=== PATIENT | male | born 1970 | race Caucasian/White ===

== ENCOUNTER 2020-11-13 04:31 | Inpatient (IN) | payer OTHER ==
[2020-11-13] MEDS ORDERED: LACTATED RINGERS SOLUTION 1000 ML INFUS.BAG IV ONE ×3 (05:05→10:33)
[2020-11-13] MEDS ORDERED: ACETAMINOPHEN 1000 MG/100 ML VIAL (NON FORMULARY) IVPB ONE ×2 (05:05→09:39)
[2020-11-13] MEDS ORDERED: ACETAMINOPHEN INJECTION 100 ML IVPB ONE (05:23)
[2020-11-13 06:40] LABS: BASO % 0.4 % (0-2.0); EOS % 0.1 % (0-4.5); HEMATOCRIT 47.4 % (35.4-49); HEMOGLOBIN 16.2 GM/dL (11.7-16.9); LYMPH % 9.8 % (8-40); MCH 31.9 pg (25.7-33.7); MCHC 34.1 g/dl (32.0-35.9); MEAN CELL VOLUME 93.6 fl (80-96); MEAN PLT VOLUME 8.5 fl (7.5-11.1); MONO % 0.5 % (3.8-10.2); NEUT % 89.2 % (42.8-82.8); PLATELET COUNT 117 K/MM3 (134-434); RBC 5.06 M/mm3 (4.00-5.60); RDW 13.8 % (11.9-15.9); WHITE BLOOD COUNT 3.2 K/mm3 (4.0-10.0)
[2020-11-13 06:50] LABS: INR 1.4 (0.83-1.09); PROTHROMBIN TIME (PATIENT) 17.1 SEC (9.7-13.0)
[2020-11-13 06:53] LABS: ACTIVATED PTT 36.6 SECONDS (25.2-36.5)
[2020-11-13 06:57] LABS: CALCIUM 8.8 mg/dL (8.5-10.1)
[2020-11-13 06:58] LABS: ALBUMIN 3.6 g/dl (3.4-5.0); BLOOD UREA NITROGEN 18.8 mg/dL (7-18)
[2020-11-13 07:01] LABS: CREATININE 1.2 mg/dL (0.55-1.3)
[2020-11-13 07:02] LABS: BILIRUBIN,TOTAL 1.4 mg/dL (0.2-1); TOT PROT 6.9 g/dl (6.4-8.2)
[2020-11-13 07:08] LABS: LACTIC ACID 4.2 mmol/L (0.4-2.0)
[2020-11-13 08:55] LABS: PH,URINE 6.5 (5.0-8.0); URINE APPEARANCE CLOUDY; URINE BILIRUBIN 1+ (NEGATIVE); URINE COLOR ORANGE; URINE GLUCOSE (UA) NEGATIVE (NEGATIVE); URINE KETONE NEGATIVE (NEGATIVE); URINE LEUK ESTERASE 1+ (NEGATIVE); URINE NITRITE POSITIVE (NEGATIVE); URINE PROTEIN 4+ (NEGATIVE)
[2020-11-13] MEDS ORDERED: KETOROLAC TROMETHAMINE 15 MG/ML VIAL IVPUSH PRN (09:40)
[2020-11-13] MEDS ORDERED: METOCLOPRAMIDE HCL INJECTION 10 MG/2 ML VIAL IVPB PRN (09:45)
[2020-11-13] MEDS ORDERED: METOCLOPRAMIDE HCL INJECTION 10 MG/2 ML VIAL ONE (09:48)
[2020-11-13 10:27] LABS: LACTIC ACID 4.4 mmol/L (0.4-2.0)
[2020-11-13] MEDS ORDERED: SODIUM CHLORIDE 1,000 ML IV STA ×2 (11:38→18:50)
[2020-11-13 11:52] LABS: ANISOCYTOSIS 1+; MACROCYTOSIS 0; PLATELET ESTIMATE DECREASED
[2020-11-13] MEDS: SODIUM CHLORIDE 1,000 ML IV SCH (13:31)
[2020-11-13] MEDS ORDERED: MEROPENEM 1 GM in DEXTROSE 5%-WATER 100 ML IVPB SCH (14:00)
[2020-11-13 14:28] LABS: LACTIC ACID 6.1 mmol/L (0.4-2.0)
[2020-11-13] MEDS ORDERED: ACETAMINOPHEN 500 MG TABLET (FP) PO ONE (15:46)
[2020-11-13 15:51] LABS: URINE RBC 35-40 /uL (0-23.9)
[2020-11-13 15:52] LABS: EPI CELLS NONE SEEN /uL (0-25.1); HYALINE CASTS NONE SEEN /uL (0-3.1); URINE BACTERIA MODERATE /uL (0-1359)
[2020-11-13] MEDS ORDERED: DEXTROSE 5%-WATER 100 ML IVPB ONE ×2 (16:08→22:52)
[2020-11-13] MEDS ORDERED: MEROPENEM 1 GM VIAL (RESTRICTED TO ID) IVPB ONE ×2 (16:08→22:51)
[2020-11-13 16:29] VITALS: BMI 27.9
[2020-11-13] MEDS ORDERED: PT OWN MED DRAWER 7, Y5N ONE (17:42)
[2020-11-13] MEDS: MEROPENEM 1 GM in DEXTROSE 5%-WATER 100 ML IVPB SCH (17:44)
[2020-11-13] MEDS: VASOPRESSIN 40 UNITS in SODIUM CHLORIDE 98 ML IVPB SCH ×3 (17:46→19:06)
[2020-11-13 18:46] LABS: LACTIC ACID 7.3 mmol/L (0.4-2.0)
[2020-11-13 20:14] LABS: CHLORIDE 109 mmol/L (98-107); SODIUM 141 mmol/L (136-145)
[2020-11-13 20:17] LABS: ANION GAP 12 MMOL/L (8-16); BLOOD UREA NITROGEN 15.4 mg/dL (7-18); CO2 20 mmol/L (21-32); GLUCOSE,RANDOM 83 mg/dL (74-106)
[2020-11-13 20:20] LABS: CREATININE 1.2 mg/dL (0.55-1.3); SGOT/AST 138 U/L (15-37); SGPT/ALT 152 U/L (13-61)
[2020-11-13 20:22] LABS: BILIRUBIN,TOTAL 1.3 mg/dL (0.2-1)
[2020-11-13 20:23] LABS: ALK PHOS 97 U/L (45-117)
[2020-11-13 20:30] LABS: ALBUMIN 2.4 g/dl (3.4-5.0); CALCIUM 6.9 mg/dL (8.5-10.1); TOT PROT 4.8 g/dl (6.4-8.2)
[2020-11-13] MEDS: MUPIROCIN 2% TOPICAL OINTMENT FOR DECOLONIZATION NS SCH (21:12)
[2020-11-13] MEDS: CHLORHEXIDINE GLUCONATE 4% CLEANSER FOR DECOLONIZATION TP SCH (21:12)
[2020-11-13] MEDS ORDERED: ACETAMINOPHEN 1000 MG/100 ML VIAL (NON FORMULARY) IVPB PRN (22:00)
[2020-11-13] MEDS ORDERED: POTASSIUM CHLORIDE ORAL LIQUID 20 MEQ/15 ML PO ONE (22:37)
[2020-11-13] MEDS ORDERED: CALCIUM GLUCONATE 10% - 1,000 MG/10 ML VIAL IVPB ONE (22:39)
[2020-11-13 22:44] LABS: ARTERIAL BLOOD GAS BASE EXCESS -9.3 mmol/L (-2-2); ARTERIAL BLOOD GAS pH 7.347 (7.350-7.450)
[2020-11-13 22:47] LABS: ALLENS TEST POSITIVE; VENT RATE N
[2020-11-14] MEDS: MEROPENEM 1 GM in DEXTROSE 5%-WATER 100 ML IVPB SCH ×3 (01:01→17:05)
[2020-11-14] MEDS ORDERED: NOREPINEPHRINE BITARTRATE 8,000 MCG/500 ML BAG IVPB ONE (01:47)
[2020-11-14] MEDS ORDERED: SODIUM CHLORIDE 500 ML IV STA (02:02)
[2020-11-14 02:43] LABS: BLOOD UREA NITROGEN 16.4 mg/dL (7-18); CALCIUM 7.5 mg/dL (8.5-10.1)
[2020-11-14 02:46] LABS: CREATININE 1.3 mg/dL (0.55-1.3)
[2020-11-14 03:06] LABS: LACTIC ACID 7.2 mmol/L (0.4-2.0)
[2020-11-14] MEDS ORDERED: SODIUM CHLORIDE 1,000 ML IV STA ×2 (04:02→18:18)
[2020-11-14] MEDS ORDERED: LACTATED RINGERS SOLUTION 1000 ML INFUS.BAG IV ONE (04:33)
[2020-11-14] MEDS: LACTATED RINGERS SOLUTION 1,000 ML/1,000 ML INFUS.BAG IV SCH (05:07)
[2020-11-14] MEDS: ALBUTEROL SO4 2.5/IPRATROPIUM 0.5 INH SOL 3 ML VIAL.NEB. NEB PRN ×4 (06:14→23:58)
[2020-11-14 07:28] LABS: HEMATOCRIT 40.3 % (35.4-49); HEMOGLOBIN 13.6 GM/dL (11.7-16.9); MCH 32.3 pg (25.7-33.7); MCHC 33.8 g/dl (32.0-35.9); MEAN CELL VOLUME 95.6 fl (80-96); MEAN PLT VOLUME 8.7 fl (7.5-11.1); PLATELET COUNT 49 K/MM3 (134-434); RBC 4.22 M/mm3 (4.00-5.60); RDW 14.1 % (11.9-15.9); WHITE BLOOD COUNT 12.2 K/mm3 (4.0-10.0)
[2020-11-14 07:52] LABS: CHLORIDE 113 mmol/L (98-107); SODIUM 143 mmol/L (136-145)
[2020-11-14 08:01] LABS: LACTIC ACID 7.2 mmol/L (0.4-2.0)
[2020-11-14] MEDS ORDERED: IBUPROFEN 200 MG TABLET PO ONE (08:15)
[2020-11-14 08:20] LABS: GLUCOSE,RANDOM 79 mg/dL (74-106)
[2020-11-14 08:21] LABS: ALBUMIN 2.5 g/dl (3.4-5.0); ANION GAP 15 MMOL/L (8-16); CO2 15 mmol/L (21-32); MAGNESIUM 1.5 mg/dL (1.8-2.4)
[2020-11-14 08:24] LABS: CREATININE 1.1 mg/dL (0.55-1.3); SGOT/AST 266 U/L (15-37); SGPT/ALT 328 U/L (13-61)
[2020-11-14] MEDS ORDERED: LACTATED RINGERS SOLUTION 1,000 ML/1,000 ML INFUS.BAG IV STA (08:25)
[2020-11-14] MEDS ORDERED: MAGNESIUM SULF 50% (8.12 MEQ/2 ML-1 GM VIAL) IVPB ONE (08:25)
[2020-11-14 08:27] LABS: BILIRUBIN,TOTAL 1.7 mg/dL (0.2-1)
[2020-11-14 08:35] LABS: ALK PHOS 46 U/L (45-117); CALCIUM 6.9 mg/dL (8.5-10.1)
[2020-11-14] MEDS ORDERED: MEROPENEM 1 GM VIAL (RESTRICTED TO ID) IVPB ONE ×2 (08:47→16:50)
[2020-11-14] MEDS ORDERED: PT OWN MED DRAWER 7, Y5N ONE (08:47)
[2020-11-14] MEDS ORDERED: DEXTROSE 5%-WATER 100 ML IVPB ONE ×2 (08:47→16:50)
[2020-11-14] MEDS: MUPIROCIN 2% TOPICAL OINTMENT FOR DECOLONIZATION NS SCH ×2 (09:13→22:44)
[2020-11-14] MEDS ORDERED: ENOXAPARIN NA (PORCINE) 40 MG/0.4 ML DISP.SYRIN SQ SCH (10:00)
[2020-11-14] MEDS: VASOPRESSIN 40 UNITS in SODIUM CHLORIDE 98 ML IVPB SCH ×2 (10:15→19:09)
[2020-11-14 12:47] LABS: EPI CELLS 4 /uL (0-25.1); HYALINE CASTS 5 /uL (0-3.1); PH,URINE 5.5 (5.0-8.0); URINE APPEARANCE TURBID; URINE BILIRUBIN 1+ (NEGATIVE); URINE COLOR ORANGE; URINE GLUCOSE (UA) NEGATIVE (NEGATIVE); URINE KETONE NEGATIVE (NEGATIVE); URINE LEUK ESTERASE 2+ (NEGATIVE); URINE NITRITE POSITIVE (NEGATIVE); URINE PROTEIN 2+ (NEGATIVE); URINE RBC 33243 /uL (0-23.9); URINE UROBILINOGEN 0.2 mg/dL (0.2-1.0); URINE WBC 1971 /uL (0-25.8)
[2020-11-14 13:59] LABS: URINE BACTERIA 5.7 /uL (0-1359)
[2020-11-14] MEDS: SODIUM CHLORIDE 1,000 ML IV SCH (14:10)
[2020-11-14 14:34] LABS: HEMATOCRIT 37.7 % (35.4-49); HEMOGLOBIN 12.7 GM/dL (11.7-16.9); MCH 31.7 pg (25.7-33.7); MCHC 33.7 g/dl (32.0-35.9); MEAN CELL VOLUME 94.2 fl (80-96); MEAN PLT VOLUME 9.2 fl (7.5-11.1); PLATELET COUNT 47 K/MM3 (134-434); RBC 4.01 M/mm3 (4.00-5.60); RDW 14.2 % (11.9-15.9); WHITE BLOOD COUNT 14.5 K/mm3 (4.0-10.0)
[2020-11-14 14:45] LABS: INR 3.47 (0.83-1.09); PROTHROMBIN TIME (PATIENT) 41.2 SEC (9.7-13.0)
[2020-11-14 14:48] LABS: ACTIVATED PTT 36.8 SECONDS (25.2-36.5)
[2020-11-14 15:18] LABS: LACTIC ACID 10.4 mmol/L (0.4-2.0)
[2020-11-14] MEDS ORDERED: MELATONIN 5 MG TABLETS PO ONE (22:23)
[2020-11-14] MEDS: CHLORHEXIDINE GLUCONATE 4% CLEANSER FOR DECOLONIZATION TP SCH (22:44)
[2020-11-15] MEDS ORDERED: MEROPENEM 1 GM VIAL (RESTRICTED TO ID) IVPB ONE ×3 (02:10→16:07)
[2020-11-15] MEDS ORDERED: DEXTROSE 5%-WATER 100 ML IVPB ONE ×3 (02:11→16:07)
[2020-11-15] MEDS: MEROPENEM 1 GM in DEXTROSE 5%-WATER 100 ML IVPB SCH ×3 (02:21→17:19)
[2020-11-15] MEDS ORDERED: ACETAMINOPHEN INJECTION 100 ML IVPB ONE (06:23)
[2020-11-15] MEDS ORDERED: ALBUTEROL SO4 2.5/IPRATROPIUM 0.5 INH SOL 3 ML VIAL.NEB. NEB ONE (06:23)
[2020-11-15] MEDS ORDERED: ALBUTEROL SO4 2.5/IPRATROPIUM 0.5 INH SOL 3 ML VIAL.NEB. NEB SCH (06:30)
[2020-11-15] MEDS: ALBUTEROL SO4 2.5/IPRATROPIUM 0.5 INH SOL 3 ML VIAL.NEB. NEB PRN (06:56)
[2020-11-15 07:25] LABS: BASO % 0.3 % (0-2.0); EOS % 1.2 % (0-4.5); HEMATOCRIT 36.1 % (35.4-49); HEMOGLOBIN 12.4 GM/dL (11.7-16.9); LYMPH % 6.8 % (8-40); MCH 31.8 pg (25.7-33.7); MCHC 34.4 g/dl (32.0-35.9); MEAN CELL VOLUME 92.6 fl (80-96); MEAN PLT VOLUME 9.4 fl (7.5-11.1); MONO % 1.9 % (3.8-10.2); NEUT % 89.8 % (42.8-82.8); PLATELET COUNT 43 K/MM3 (134-434); RDW 13.9 % (11.9-15.9); WHITE BLOOD COUNT 16.2 K/mm3 (4.0-10.0)
[2020-11-15 07:26] LABS: ARTERIAL BLD GAS O2 SATURATION 52.6 mmHg (95-98); ARTERIAL BLOOD GAS BASE EXCESS -5.8 mmol/L (-2-2); ARTERIAL BLOOD GAS pH 7.349 (7.350-7.450)
[2020-11-15 07:30] LABS: ALLENS TEST POSITIVE
[2020-11-15 07:31] LABS: ARTERIAL BLOOD GAS PO2 29.1 mmHg (80-100)
[2020-11-15 07:33] LABS: INR 1.71 (0.83-1.09); PROTHROMBIN TIME (PATIENT) 20.7 SEC (9.7-13.0)
[2020-11-15 07:36] LABS: ACTIVATED PTT 32.3 SECONDS (25.2-36.5)
[2020-11-15 07:40] LABS: CHLORIDE 112 mmol/L (98-107); SODIUM 140 mmol/L (136-145)
[2020-11-15 07:45] LABS: CREATININE 0.7 mg/dL (0.55-1.3); LACTIC ACID 4.4 mmol/L (0.4-2.0)
[2020-11-15 07:47] LABS: BILIRUBIN,TOTAL 0.8 mg/dL (0.2-1); TOT PROT 5.3 g/dl (6.4-8.2)
[2020-11-15 07:48] LABS: ALK PHOS 63 U/L (45-117)
[2020-11-15 07:49] LABS: ALBUMIN 2.5 g/dl (3.4-5.0); BLOOD UREA NITROGEN 21.1 mg/dL (7-18); GLUCOSE,RANDOM 128 mg/dL (74-106)
[2020-11-15 07:51] LABS: CALCIUM 7.7 mg/dL (8.5-10.1)
[2020-11-15 07:52] LABS: ANION GAP 9 MMOL/L (8-16); CO2 19 mmol/L (21-32); MAGNESIUM 2.3 mg/dL (1.8-2.4); SGOT/AST 316 U/L (15-37); SGPT/ALT 500 U/L (13-61)
[2020-11-15 07:58] LABS: PHOSPHOROUS 0.9 mg/dL (2.5-4.9)
[2020-11-15] MEDS: ALBUTEROL SO4 2.5/IPRATROPIUM 0.5 INH SOL 3 ML VIAL.NEB. NEB SCH ×3 (08:00→20:07)
[2020-11-15] MEDS ORDERED: FAMOTIDINE 20 MG/50 ML IVPB 20 MG/50 ML MG IVPB ONE (09:00)
[2020-11-15] MEDS ORDERED: methylPREDNISolone NA SUCC 125 MG/2 ML VIAL IVPUSH ONE (09:00)
[2020-11-15] MEDS ORDERED: PT OWN MED DRAWER 7, Y5N ONE ×2 (09:08→20:56)
[2020-11-15] MEDS: LACTATED RINGERS SOLUTION 1,000 ML/1,000 ML INFUS.BAG IV SCH (09:10)
[2020-11-15] MEDS: MUPIROCIN 2% TOPICAL OINTMENT FOR DECOLONIZATION NS SCH ×2 (09:11→21:03)
[2020-11-15] MEDS: VASOPRESSIN 40 UNITS in SODIUM CHLORIDE 98 ML IVPB SCH (09:11)
[2020-11-15] MEDS: POTASSIUM PHOSPHATE 45 MM in SODIUM CHLORIDE 500 ML IVPB ONE ×2 (09:17→11:14)
[2020-11-15 09:33] LABS: ARTERIAL BLD GAS O2 SATURATION 96.7 mmHg (95-98); ARTERIAL BLOOD GAS BASE EXCESS -5.1 mmol/L (-2-2); ARTERIAL BLOOD GAS PO2 85.7 mmHg (80-100); ARTERIAL BLOOD GAS pH 7.411 (7.350-7.450)
[2020-11-15 09:34] LABS: ALLENS TEST POSITIVE
[2020-11-15 09:43] LABS: VENT MODE S/T; VENT RATE 12
[2020-11-15] MEDS ORDERED: FUROSEMIDE 40 MG/4 ML INJECTABLE VIAL IVPUSH ONE (10:15)
[2020-11-15 11:11] LABS: ANISOCYTOSIS 1+; MACROCYTOSIS 0; OVALOCYTE 1+; PLATELET ESTIMATE DECREASED
[2020-11-15] MEDS ORDERED: POTASSIUM PHOSPHATE 45 MM in SODIUM CHLORIDE 250 ML IVPB ONE (11:13)
[2020-11-15] MEDS: NAPH,MB-DB/K PH,MBDB POWDER PACKET PO SCH ×3 (12:18→21:00)
[2020-11-15] MEDS: CHLORHEXIDINE GLUCONATE 4% CLEANSER FOR DECOLONIZATION TP SCH (21:04)
[2020-11-16] MEDS ORDERED: MEROPENEM 1 GM VIAL (RESTRICTED TO ID) IVPB ONE ×3 (01:06→16:48)
[2020-11-16] MEDS ORDERED: DEXTROSE 5%-WATER 100 ML IVPB ONE ×3 (01:06→16:49)
[2020-11-16] MEDS: MEROPENEM 1 GM in DEXTROSE 5%-WATER 100 ML IVPB SCH ×3 (01:08→17:05)
[2020-11-16 07:12] LABS: BASO % 0.1 % (0-2.0); EOS % 0.1 % (0-4.5); HEMATOCRIT 33.8 % (35.4-49); HEMOGLOBIN 11.8 GM/dL (11.7-16.9); LYMPH % 6.4 % (8-40); MCH 31.4 pg (25.7-33.7); MCHC 34.8 g/dl (32.0-35.9); MEAN CELL VOLUME 90.2 fl (80-96); MEAN PLT VOLUME 9.5 fl (7.5-11.1); NEUT % 90.4 % (42.8-82.8); PLATELET COUNT 55 K/MM3 (134-434); RBC 3.75 M/mm3 (4.00-5.60); WHITE BLOOD COUNT 24.2 K/mm3 (4.0-10.0)
[2020-11-16 07:33] LABS: ALBUMIN 2.4 g/dl (3.4-5.0); BLOOD UREA NITROGEN 20.9 mg/dL (7-18)
[2020-11-16 07:36] LABS: CREATININE 0.7 mg/dL (0.55-1.3); PHOSPHOROUS 1.3 mg/dL (2.5-4.9)
[2020-11-16 07:38] LABS: TOT PROT 5.4 g/dl (6.4-8.2)
[2020-11-16] MEDS: ALBUTEROL SO4 2.5/IPRATROPIUM 0.5 INH SOL 3 ML VIAL.NEB. NEB SCH ×4 (08:40→20:40)
[2020-11-16] MEDS ORDERED: PHYTONADIONE 10 MG/1 ML AMP SQ SCH (10:00)
[2020-11-16 10:24] LABS: ANISOCYTOSIS 0; MACROCYTOSIS 0; PLATELET ESTIMATE DECREASED
[2020-11-16] MEDS: MUPIROCIN 2% TOPICAL OINTMENT FOR DECOLONIZATION NS SCH ×2 (13:51→22:20)
[2020-11-16] MEDS ORDERED: NAPH,MB-DB/K PH,MBDB POWDER PACKET PO SCH (14:00)
[2020-11-16] MEDS ORDERED: METOCLOPRAMIDE HCL INJECTION 10 MG/2 ML VIAL IVPB PRN (15:22)
[2020-11-16] MEDS: CHLORHEXIDINE GLUCONATE 4% CLEANSER FOR DECOLONIZATION TP SCH (22:20)
[2020-11-16] MEDS: NAPH,MB-DB/K PH,MBDB POWDER PACKET PO SCH (22:20)
[2020-11-17] MEDS ORDERED: DEXTROSE 5%-WATER 100 ML IVPB ONE ×3 (02:27→16:33)
[2020-11-17] MEDS ORDERED: MEROPENEM 1 GM VIAL (RESTRICTED TO ID) IVPB ONE ×3 (02:27→16:32)
[2020-11-17] MEDS: MEROPENEM 1 GM in DEXTROSE 5%-WATER 100 ML IVPB SCH ×3 (02:44→17:18)
[2020-11-17] MEDS: SODIUM CHLORIDE NASAL SPRAY 44 ML BOTTLE NS PRN ×2 (03:56→13:22)
[2020-11-17] MEDS: NAPH,MB-DB/K PH,MBDB POWDER PACKET PO SCH ×3 (05:48→21:36)
[2020-11-17] MEDS: ALBUTEROL SO4 2.5/IPRATROPIUM 0.5 INH SOL 3 ML VIAL.NEB. NEB SCH ×4 (07:30→20:30)
[2020-11-17] MEDS ORDERED: SODIUM CHLORIDE 250 ML IV STA (09:32)
[2020-11-17 09:56] LABS: INR 1.2 (0.83-1.09); PROTHROMBIN TIME (PATIENT) 14.5 SEC (9.7-13.0)
[2020-11-17 09:59] LABS: ACTIVATED PTT 25.5 SECONDS (25.2-36.5)
[2020-11-17] MEDS: PHYTONADIONE 10 MG/1 ML AMP SQ SCH (10:00)
[2020-11-17] MEDS: MUPIROCIN 2% TOPICAL OINTMENT FOR DECOLONIZATION NS SCH ×2 (10:01→21:33)
[2020-11-17 10:15] LABS: HEMATOCRIT 40.4 % (35.4-49); MCH 31.5 pg (25.7-33.7); MCHC 34.7 g/dl (32.0-35.9); MEAN CELL VOLUME 90.7 fl (80-96); MEAN PLT VOLUME 9.5 fl (7.5-11.1); PLATELET COUNT 69 K/MM3 (134-434); RBC 4.45 M/mm3 (4.00-5.60); RDW 14.1 % (11.9-15.9); WHITE BLOOD COUNT 19.4 K/mm3 (4.0-10.0)
[2020-11-17 10:38] LABS: BLOOD UREA NITROGEN 24.7 mg/dL (7-18); CALCIUM 8.2 mg/dL (8.5-10.1); MAGNESIUM 1.9 mg/dL (1.8-2.4)
[2020-11-17 10:41] LABS: CREATININE 0.7 mg/dL (0.55-1.3)
[2020-11-17] MEDS: NYSTATIN 500,000 UNITS/5 ML SUSPENSION PO SCH ×3 (12:11→23:06)
[2020-11-17] MEDS: SODIUM CHLORIDE 1,000 ML IV SCH (14:45)
[2020-11-17] MEDS ORDERED: ACETAMINOPHEN 325 MG TABLET (FP) PO ONE (18:10)
[2020-11-17] MEDS: CHLORHEXIDINE GLUCONATE 4% CLEANSER FOR DECOLONIZATION TP SCH (21:33)
[2020-11-18] MEDS ORDERED: DEXTROSE 5%-WATER 100 ML IVPB ONE ×3 (01:06→16:46)
[2020-11-18] MEDS ORDERED: MEROPENEM 1 GM VIAL (RESTRICTED TO ID) IVPB ONE ×3 (01:06→16:46)
[2020-11-18] MEDS: MEROPENEM 1 GM in DEXTROSE 5%-WATER 100 ML IVPB SCH ×3 (01:26→17:51)
[2020-11-18] MEDS: SODIUM CHLORIDE 1,000 ML IV SCH ×2 (01:48→13:42)
[2020-11-18] MEDS: NYSTATIN 500,000 UNITS/5 ML SUSPENSION PO SCH (05:02)
[2020-11-18] MEDS: NAPH,MB-DB/K PH,MBDB POWDER PACKET PO SCH (05:02)
[2020-11-18] MEDS: ALBUTEROL SO4 2.5/IPRATROPIUM 0.5 INH SOL 3 ML VIAL.NEB. NEB SCH ×4 (07:57→20:58)
[2020-11-18] MEDS: PHYTONADIONE 10 MG/1 ML AMP SQ SCH (09:16)
[2020-11-18] MEDS: MUPIROCIN 2% TOPICAL OINTMENT FOR DECOLONIZATION NS SCH (09:16)
[2020-11-18] MEDS: LACTOBACILLUS ACIDOPHILUS 1 TABLET PO SCH (10:27)
[2020-11-18] MEDS: BACITRACIN 15 GM TUBE TOPICAL OINTMENT TP SCH ×2 (10:27→21:34)
[2020-11-18 10:39] LABS: HEMATOCRIT 42.6 % (35.4-49); HEMOGLOBIN 14.4 GM/dL (11.7-16.9); MCH 31.1 pg (25.7-33.7); MCHC 33.7 g/dl (32.0-35.9); MEAN CELL VOLUME 92.4 fl (80-96); MEAN PLT VOLUME 9.6 fl (7.5-11.1); PLATELET COUNT 84 K/MM3 (134-434); RBC 4.62 M/mm3 (4.00-5.60); RDW 14.4 % (11.9-15.9); WHITE BLOOD COUNT 19.9 K/mm3 (4.0-10.0)
[2020-11-18 11:00] LABS: BLOOD UREA NITROGEN 17.1 mg/dL (7-18); MAGNESIUM 2.2 mg/dL (1.8-2.4)
[2020-11-18 11:03] LABS: CREATININE 0.6 mg/dL (0.55-1.3)
[2020-11-18] MEDS: MAG HYDROX/ALH/SMC/DPHA/LIDO 240 ML MOUTHWASH MM SCH ×3 (11:50→23:01)
[2020-11-18] MEDS: valACYclovir HCL 500 MG TABLET (FP) PO SCH ×2 (13:42→21:34)
[2020-11-18] MEDS ORDERED: PT OWN MED DRAWER 7, Y5N ONE (21:05)
[2020-11-19] MEDS: SODIUM CHLORIDE 1,000 ML IV SCH ×3 (00:35→12:55)
[2020-11-19] MEDS ORDERED: DEXTROSE 5%-WATER 100 ML IVPB ONE ×3 (01:32→16:42)
[2020-11-19] MEDS ORDERED: MEROPENEM 1 GM VIAL (RESTRICTED TO ID) IVPB ONE ×3 (01:32→16:42)
[2020-11-19] MEDS: MEROPENEM 1 GM in DEXTROSE 5%-WATER 100 ML IVPB SCH ×3 (01:34→17:00)
[2020-11-19] MEDS: MAG HYDROX/ALH/SMC/DPHA/LIDO 240 ML MOUTHWASH MM SCH ×3 (05:25→17:01)
[2020-11-19] MEDS: valACYclovir HCL 500 MG TABLET (FP) PO SCH ×3 (05:25→22:04)
[2020-11-19 08:36] LABS: HEMATOCRIT 42.2 % (35.4-49); HEMOGLOBIN 14.2 GM/dL (11.7-16.9); MCH 30.9 pg (25.7-33.7); MCHC 33.6 g/dl (32.0-35.9); PLATELET COUNT 120 K/MM3 (134-434); RBC 4.59 M/mm3 (4.00-5.60); RDW 14.3 % (11.9-15.9); WHITE BLOOD COUNT 15.9 K/mm3 (4.0-10.0)
[2020-11-19] MEDS: ALBUTEROL SO4 2.5/IPRATROPIUM 0.5 INH SOL 3 ML VIAL.NEB. NEB SCH ×4 (08:45→19:29)
[2020-11-19 09:06] LABS: CALCIUM 8.2 mg/dL (8.5-10.1)
[2020-11-19 09:07] LABS: MAGNESIUM 2.4 mg/dL (1.8-2.4)
[2020-11-19 09:10] LABS: CREATININE 0.6 mg/dL (0.55-1.3)
[2020-11-19] MEDS: LACTOBACILLUS ACIDOPHILUS 1 TABLET PO SCH (09:25)
[2020-11-19] MEDS: BACITRACIN 15 GM TUBE TOPICAL OINTMENT TP SCH ×2 (09:29→22:04)
[2020-11-19] MEDS ORDERED: PT OWN MED DRAWER 7, Y5N ONE (21:43)
[2020-11-20] MEDS ORDERED: DEXTROSE 5%-WATER 100 ML IVPB ONE ×3 (01:21→17:45)
[2020-11-20] MEDS ORDERED: MEROPENEM 1 GM VIAL (RESTRICTED TO ID) IVPB ONE ×3 (01:21→17:45)
[2020-11-20] MEDS: MAG HYDROX/ALH/SMC/DPHA/LIDO 240 ML MOUTHWASH MM SCH ×5 (01:23→23:56)
[2020-11-20] MEDS: MEROPENEM 1 GM in DEXTROSE 5%-WATER 100 ML IVPB SCH ×3 (01:24→17:55)
[2020-11-20] MEDS: SODIUM CHLORIDE 1,000 ML IV SCH ×2 (04:38→17:56)
[2020-11-20] MEDS ORDERED: PT OWN MED DRAWER 7, Y5N ONE ×6 (04:45→23:56)
[2020-11-20] MEDS: valACYclovir HCL 500 MG TABLET (FP) PO SCH ×3 (05:19→21:26)
[2020-11-20] MEDS: ALBUTEROL SO4 2.5/IPRATROPIUM 0.5 INH SOL 3 ML VIAL.NEB. NEB SCH ×3 (08:45→20:35)
[2020-11-20] MEDS: BACITRACIN 15 GM TUBE TOPICAL OINTMENT TP SCH ×2 (09:10→21:26)
[2020-11-20] MEDS: LACTOBACILLUS ACIDOPHILUS 1 TABLET PO SCH (09:10)
[2020-11-21] MEDS ORDERED: MEROPENEM 1 GM VIAL (RESTRICTED TO ID) IVPB ONE ×2 (01:36→09:36)
[2020-11-21] MEDS ORDERED: DEXTROSE 5%-WATER 100 ML IVPB ONE ×2 (01:37→09:37)
[2020-11-21] MEDS: MEROPENEM 1 GM in DEXTROSE 5%-WATER 100 ML IVPB SCH ×2 (02:07→09:37)
[2020-11-21] MEDS: valACYclovir HCL 500 MG TABLET (FP) PO SCH (05:14)
[2020-11-21] MEDS: MAG HYDROX/ALH/SMC/DPHA/LIDO 240 ML MOUTHWASH MM SCH (05:14)
[2020-11-21] MEDS ORDERED: PT OWN MED DRAWER 7, Y5N ONE (05:14)
[2020-11-21] MEDS: ALBUTEROL SO4 2.5/IPRATROPIUM 0.5 INH SOL 3 ML VIAL.NEB. NEB SCH (08:15)
[2020-11-21 09:13] LABS: BASO % 0.5 % (0-2.0); EOS % 2.2 % (0-4.5); HEMATOCRIT 41.7 % (35.4-49); HEMOGLOBIN 14.1 GM/dL (11.7-16.9); LYMPH % 22.6 % (8-40); MCH 31.3 pg (25.7-33.7); MCHC 33.8 g/dl (32.0-35.9); MEAN CELL VOLUME 92.4 fl (80-96); MEAN PLT VOLUME 8.9 fl (7.5-11.1); MONO % 10.7 % (3.8-10.2); PLATELET COUNT 194 10^3/uL (134-434); RBC 4.51 M/mm3 (4.00-5.60); RDW 14.2 % (11.9-15.9)
[2020-11-21] MEDS: BACITRACIN 15 GM TUBE TOPICAL OINTMENT TP SCH (09:35)
[2020-11-21] MEDS: LACTOBACILLUS ACIDOPHILUS 1 TABLET PO SCH (09:37)
[2020-11-21 09:38] LABS: ANISOCYTOSIS 0; HELMET CELLS 0; HOWELL-JOLLY BODIES 0; MACROCYTOSIS 0; OVALOCYTE 0; PLATELET ESTIMATE NORMAL; ROULEAU 0; SICKELED CELLS 0; TARGET CELLS 0; TEAR DROP CELLS 0; TOXIC GRANULATION 0
[2020-11-21 09:44] VITALS: BP 103/58; PULSE 78; TEMP 98.9
== END 2020-11-21 12:46 | disposition home or self-care (01) | DRG 721 ==
LOC: JER 04:31 → JERBED 07:50 → JICU 15:28 → J5S 11-16 18:46
PROVIDERS: ADMIT Family Medicine; ATTEND Family Medicine
DX: T81.40XA Infection following a procedure, unspecified, initial encounter (principal); T81.44XA Sepsis following a procedure, initial encounter; A41.51 Sepsis due to Escherichia coli [E. coli]; R65.21 Severe sepsis with septic shock; I10 Essential (primary) hypertension; E87.2 Acidosis; R50.9 Fever, unspecified; I95.9 Hypotension, unspecified; N41.9 Inflammatory disease of prostate, unspecified; K72.00 Acute and subacute hepatic failure without coma; K62.5 Hemorrhage of anus and rectum; N41.0 Acute prostatitis; D69.6 Thrombocytopenia, unspecified; R74.01 Elevation of levels of liver transaminase levels; R31.9 Hematuria, unspecified; J96.01 Acute respiratory failure with hypoxia; J90 Pleural effusion, not elsewhere classified; J98.11 Atelectasis; Y83.8 Other surgical procedures as the cause of abnormal reaction of the patient, or of later complication, without mention of misadventure at the time of the procedure
CPT/HCPCS: 36415; 36600; 71045-TC-FY; 71275-TC; 74177-TC; 76705-TC; 80048; 80053; 81003; 82533; 82550; 82607; 82747; 82803; 83605; 83690; 83735; 84100; 84443; 84484; 85014; 85025; 85027; 85379; 85384; 85610; 85730; 86850; 86900; 86901; 87040; 87045; 87046; 87086; 87186; 87324; 87449; 93005; 93010; 93306-TC; 94640; 94660; 99285-25; C9803; J0131; Q9967; U0003; U0005

== ENCOUNTER 2022-12-01 04:12 | Day surgery (SDC) | payer OTHER ==
[2022-11-27 14:52] VITALS: BMI 28.3
[2022-12-01] MEDS ORDERED: MIDAZOLAM HCL 2 MG/2 ML SINGLE DOSE VIAL ONE (13:48)
[2022-12-01] MEDS ORDERED: ONDANSETRON 4 MG/2 ML VIAL ONE (13:48)
[2022-12-01 15:46] VITALS: TEMP 97.2
[2022-12-01 15:51] VITALS: BP 117/74; PULSE 74; RESP 20
== END 2022-12-01 15:25 | disposition home or self-care (01) ==
LOC: JASU-SURG 04:12
PROVIDERS: ATTEND Urology
PROC: 0TF3XZZ Fragmentation in Right Kidney Pelvis, External Approach (ICD-10-PCS; principal; 2022-12-01 13:00)
DX: N20.0 Calculus of kidney (principal)